=== PATIENT | female | born 1990 | race Two or more races ===

== ENCOUNTER 2023-12-22 13:19 | Outpatient (CLI) | payer OTHER | END 2023-12-22 13:20 | disposition home or self-care (01) | LOC: PRENATAL 13:19 | PROVIDERS: ATTEND Obstetrics & Gynecology Maternal & Fetal Medicine | DX: Z76.1 Encounter for health supervision and care of foundling (principal) ==

== ENCOUNTER 2025-08-04 11:35 | Emergency (ER) | payer OTHER ==
[~2025-08-04] VITALS: Ht 157.5 cm; Wt 87.5 kg
[2025-08-04] MEDS ORDERED: SYNTHROID75 MCG PO (11:49)
[2025-08-04] MEDS ORDERED: ADMELOG100 UNIT/1 (11:49)
[2025-08-04] MEDS ORDERED: NORETHINDRONE AC5 MG PO (11:50)
[2025-08-04] MEDS ORDERED: 0.9 % SODIUM CHLORIDE 1,000 ML IV SCH (12:15)
[2025-08-04 12:26] LABS: BASO % 0.5 % (0.1-1.2); EOS # 0.01 (0.04-0.54); EOS % 0.1 % (0.7-7.0); LYMPH # 2.61 (1.18-3.74); LYMPH % 20.5 % (19.3-53.1); MEAN PLATELET VOLUME 10.10 fl (9.4-12.4); MONO # 1.06 (0.24-0.82); MONO % 8.3 % (4.7-12.5); NEUT # 8.93 (1.56-6.13); NEUT % 70.3 % (34.0-71.1); RED CELL DISTRIBUTION WIDTH 15.3 % (11.6-14.4)
[2025-08-04 12:32] LABS: ABG PH 7.446 (7.35-7.45); ABG PO2 90.7 mmHg (80-100); BICARBONATE 22.0 mmol/l (23-25); o2 21 %
[2025-08-04] MEDS ORDERED: METOCLOPRAMIDE HCL 5 MG/ML VIAL ONE (12:34)
[2025-08-04] MEDS ORDERED: KETOROLAC TROMETHAMINE 30 MG VIAL ONE (12:34)
[2025-08-04] MEDS ORDERED: KETOROLAC TROMETHAMINE 30 MG VIAL IV ONE (12:45)
[2025-08-04] MEDS ORDERED: METOCLOPRAMIDE HCL 10 MG in DEXTROSE 5 % IN WATER 50 ML IV ONE (12:45)
[2025-08-04 12:50] LABS: ALT/SGPT 31.0 U/L (12-78); AST/SGOT 18.0 U/L (15-37); BILIRUBIN TOTAL 0.8 mg/dL (0.3-1.2); BUN CREA RATIO 15.0 (7.0-25.0); CREATININE SERUM 0.73 mg/dL (0.55-1.02); GFR 91.81; GLOBULINA 4.5 G/DL (2.4-3.5); GLUCOSE FASTING 97.0 mg/dL (65-100); OSMOLALITY SERUM 275.0 MOSM/KG (275-295)
[2025-08-04 12:51] LABS: INR 1.05
[2025-08-04 12:52] LABS: COVID-19 AG NEGATIVE (NEGATIVE)
[2025-08-04] MEDS ORDERED: levoFLOXacin IN DEXTROSE 5 % 500MG/100ML PIGGYBAG IV ONE (17:30)
[2025-08-04 18:26] LABS: URINE APPEARANCE Clear; URINE BILIRRUBIN Negative (NEGATIVE); URINE BLOOD Large; URINE COLOR Yellow; URINE KETONE 15 (NEGATIVE); URINE LEUKOCYTE Negative; URINE NITRATE Negative; URINE PROTEIN Negative (NEGATIVE); URINE UROBILINOGEN 0.2 E.U./dl
[2025-08-04 18:29] LABS: URINE BACTERIA 16.8 uL (0.0-1933); URINE EPITHELIAL CELLS 3.5 uL (0.0-38.8); URINE RBC 1011.5 uL (0.0-20.8); URINE WBC 10.5 uL (0.0-23.2)
[2025-08-04 19:07] LABS: URINE CAST 0.00 uL (0.0-1.40); URINE GLUCOSE 100 MG/DL (NEGATIVE)
[2025-08-04 20:11] LABS: ALT/SGPT 25.0 U/L (12-78); AST/SGOT 11.0 U/L (15-37); BILIRUBIN TOTAL 0.65 mg/dL (0.3-1.2); BUN CREA RATIO 11.0 (7.0-25.0); CREATININE SERUM 0.72 mg/dL (0.55-1.02); GFR 93.29; GLOBULINA 3.7 G/DL (2.4-3.5); GLUCOSE FASTING 82.0 mg/dL (65-100); OSMOLALITY SERUM 269.0 MOSM/KG (275-295)
[2025-08-04] MEDS ORDERED: PROTONIX40 MG PO (20:28)
[2025-08-04] MEDS ORDERED: ZOFRAN8 MG PO (20:28)
[2025-08-04] MEDS ORDERED: PROMETHAZINE HCL 50 MG/ML AMPUL IM ONE (21:00)
[2025-08-04] MEDS ORDERED: KETOROLAC TROMETHAMINE 60 MG VIAL IM ONE ×2 (21:00→21:19)
[2025-08-04] MEDS ORDERED: PROMETHAZINE HCL 25 MG/ML AMPUL ONE (21:19)
[2025-08-04] MEDS ORDERED: FAMOTIDINE/PF 20 MG/2 ML VIAL ONE (21:20)
[2025-08-04] MEDS ORDERED: FAMOtidine 10 MG/ML (4ML VIAL) IV STA (21:39)
== END 2025-08-04 23:31 | disposition home or self-care (01) ==
LOC: ER 11:35
PROVIDERS: Emergency Medicine; General Practice
DX: N92.3 Ovulation bleeding (principal); D25.9 Leiomyoma of uterus, unspecified; Z20.822 Contact with and (suspected) exposure to COVID-19; E11.9 Type 2 diabetes mellitus without complications; Z79.4 Long term (current) use of insulin; Z88.2 Allergy status to sulfonamides
CPT/HCPCS: 36415; 74177; 82803; 93005; Q9965